=== PATIENT | female | born 1935 | race Caucasian/White ===

== ENCOUNTER 2022-01-21 15:10 | Emergency (ER) | payer OTHER ==
[2022-01-21 15:46] VITALS: BP 153/96; PULSE 73; RESP 20; TEMP 98.2; BMI 27.0
== END 2022-01-21 18:50 | disposition home or self-care (01) ==
LOC: FER 15:10
DX: R22.42 Localized swelling, mass and lump, left lower limb (principal)
CPT/HCPCS: 93005; 93971-TC; 99284-25